=== PATIENT | female | born 1950 | race Caucasian/White ===

== ENCOUNTER → 2016-11-26 | Outpatient (CLI) | payer OTHER | LOC: CIMAGING 10:44 | PROVIDERS: ATTEND Obstetrics & Gynecology Gynecology | DX: Z12.31 Encounter for screening mammogram for malignant neoplasm of breast (principal) | CPT/HCPCS: G0202 ==

== ENCOUNTER → 2017-03-07 | Outpatient (CLI) | payer OTHER | LOC: FIMAGING 10:21 | PROVIDERS: ATTEND Physician Assistant | DX: R11.2 Nausea with vomiting, unspecified (principal); K22.4 Dyskinesia of esophagus; K22.8 Other specified diseases of esophagus; Z98.1 Arthrodesis status ==

== ENCOUNTER 2017-06-02 12:01 | Day surgery (SDC) | payer OTHER ==
[2017-06-02] MEDS ORDERED: LIDOCAINE 1% 2 ML INJ ONE (12:53)
[2017-06-02] MEDS ORDERED: LIDOCAINE 1% 2 ML INJ ID PRN (12:54)
[2017-06-02] MEDS ORDERED: LR 1,000 ML IV ONE (12:54)
--- NOTE | 2017-06-02 13:45 | PDANEPAE ---
ANE History of Present Illness here for egd/colonoscopy ANE Past Medical History - Cardiovascular History Hx Hypertension: No Hx Arrhythmias: No Hx Chest Pain: No Hx Coronary Artery / Peripheral Vascular Disease: No Hx CHF / Valvular Disease: No Hx Palpitations: No Cardiovascular History Comment: slight murmur? heart valve problems r/t menigitis,hx- mitral valve. - Pulmonary History Hx COPD: No Hx Asthma/Reactive Airway Disease: No Hx Recent Upper Respiratory Infection: No Hx Oxygen in Use at Home: No Hx Sleep Apnea: No Sleep Apnea Screening Result - Last Documented: Negative Pulmonary History Comment: denies sob to walk across the rooms. PNEUMONIA 2013 - NOW CLEARED PER CXR DONE MAR [address] KEITH - Neurologic History Hx Cerebrovascular Accident: No Hx Seizures: Yes Hx Dementia: No Neurologic History Comment: hx menigitis. migraines. hx seizure x 1 in hosp- 2003. hx of spinal fusions - Endocrine History Hx Diabetes: Yes Endocrine History Comment: hypothyroidism. addisons disease - Renal History Hx Renal Disorders: No - Liver History Hx Hepatic Disorders: No Hepatic History Comment: CHOLECYSTECTOMY - Neurological & Psychiatric Hx Hx Neurological and Psychiatric Disorders: Yes Neurological / Psychiatric History Comment: depression. anxiety - Cancer History Hx Cancer: Yes Cancer History Comment: hx basal cell ca. - Congenital Disorder History Hx Congenital Disorders: No - GI History Hx Gastrointestinal Disorders: Yes Gastrointestinal History Comment: sigmoid repairs, mult abd surgeries. hernia repair. current nausea, vomiting, diarrhea. hx of blanca and ERCP. IBS - Other Health History Other Health History: fibromyalgia - Chronic Pain History Chronic Pain: Yes (fibromyalgia, endometriosis) - Surgical History Prior Surgeries: 04/22/14 ERCP with Saul. sm bowel resection. appy. lap cholecystectomy. abd. hysterectomy. temp ileostomy- reanastomosed. abdominal surgeries- lysis of adhesions. bowel repairs. hernia repairs. LUMBAR SPINE FUSIONS ANE Review of Systems Review of systems is: negative Review of Systems: - Exercise capacity Exercise capacity: >=4 METS METS (RN): 4 METS ANE Patient History - Allergies Allergies/Adverse Reactions: cilastatin sodium [From Primaxin IM] Allergy (Verified 05/19/17 10:22) Rash diphenhydramine HCl [From Benadryl] Allergy (Verified 05/19/17 10:22) goes crazy with it- bounces off the wall droperidol [From Inapsine] Allergy (Verified 05/19/17 10:22) vomitting imipenem [From Primaxin IM] Allergy (Verified 05/19/17 10:22) Rash meperidine HCl [From Demerol] Allergy (Verified 05/19/17 10:22) vomitting meropenem [From Merrem] Allergy (Verified 05/19/17 10:22) vomitting metoclopramide HCl [From Reglan] Allergy (Verified 05/19/17 10:22) goes carla crazy with this too Metronidazole HCl [From Flagyl] Allergy (Verified 05/19/17 10:22) Rash morphine [Morphine] Allergy (Verified 05/19/17 10:22) vomitting prochlorperazine maleate [From Compazine] Allergy (Verified 05/19/17 10:22) vomitting promethazine HCl [From Phenergan] Allergy (Verified 05/19/17 10:22) goes crazy with sulfamethoxazole [From Bactrim] Allergy (Verified 05/19/17 10:22) Rash trimethoprim [From Bactrim] Allergy (Verified 05/19/17 10:22) Rash - Home Medications Home medications: home medication list seen and reviewed Home Medications: Chlordiaz/Clidiniu 5/2.5 [Librax (RX)] 01/07/12 [Last Taken 3 Days Ago ~] Diphenoxylate HCl/Atrop Sulf [Lomotil Tab (RX)] 01/07/12 [Last Taken 3 Days Ago ~05/30/17] LORazepam [Ativan 1 mg (RX)] 01/07/12 [Last Taken 1 Day Ago ~06/01/17] Herbals/Supplements -Info Only 01/25/14 [Last Taken 1 Week Ago ~05/26/17] Levothyroxine [Synthroid 50 mcg (RX)] 01/25/14 [Last Taken 06/02/17 07:00] DILAUDID 05/19/17 [Last Taken 06/02/17 07:00] Embeda 100-4 mg Capsule 05/19/17 [Last Taken 06/02/17 07:00] LYRICA 05/19/17 [Last Taken 06/02/17 07:00] Metamucil 05/19/17 [Last Taken 1 Week Ago ~05/26/17] Prilosec 05/19/17 [Last Taken 2 Days Ago ~05/31/17] predniSONE 05/19/17 [Last Taken 1 Day Ago ~06/01/17] - NPO status NPO Status: no food or drink >8 hours NPO Since - Liquids (Date): 06/01/17 NPO Since - Liquids (Time): 22:00 NPO Since - Solids (Date): 06/01/17 NPO Since - Solids (Time): 22:00 - Smoking Hx Smoking Status: Never smoked - Family Anes Hx Family Hx Anesthesia Complications: none ANE Labs/Vital Signs - Vital Signs Vital Signs: reviewed preoperatively; see RN documention for details Blood Pressure: 109/66 Heart Rate: 98 Respiratory Rate: 18 O2 Sat (%): 89 Height: 157.48 cm Weight: 49.895 kg ANE Anesthesia Plan Anesthesia Plan: GA with mask
[2017-06-02] MEDS ORDERED: MIDAZOLAM 2 MG/2 ML VIAL ONE (13:51)
[2017-06-02] MEDS ORDERED: PROPOFOL/EMULSION 500 MG/50 ML BOTTLE IV ONE (13:52)
--- NOTE | 2017-06-02 13:52 | PDGENHP ---
History & Physical Chief Complaint: nausea and vomiting History of Present Illness: 66 year old female on PPI therapy presents for evaluation of nausea and vomiting. Pertinent Past, Social, Family History: PMHx: chronic pain, migraines, fibromyalgia. pSurgx: multiple abdominal pains Relevant Physical Exam: HEENT: anicteric. CV: RRR +s1s2. Lungs: CTAB. Abd: soft, nt + bs Cardiorespiratory Assessment: ASA 3
[2017-06-02] MEDS ORDERED: HYDROmorphONE/DILAUDID 2 MG/ML INJ ONE (13:59)
[2017-06-02] MEDS ORDERED: ONDANSETRON 4 MG/2 ML VIAL IVP PRN (14:15)
[2017-06-02] MEDS ORDERED: NALOXONE HCL 0.4 MG/ML INJ IVP PRN (14:15)
[2017-06-02] MEDS ORDERED: fentaNYL 100 MCG/2 ML INJ IVP PRN (14:15)
[2017-06-02] MEDS ORDERED: HYDROmorphONE/DILAUDID 1 MG/ML INJ IVP PRN (14:15)
[2017-06-02] MEDS ORDERED: ALBUTEROL 3 ML DEYVIAL IH PRN (14:15)
[2017-06-02 15:38] VITALS: TEMP 96.8
[2017-06-02 15:54] VITALS: BP 118/80; PULSE 83; RESP 14; O2SAT 94
--- NOTE | 2017-06-02 22:29 | GPN ---
[f rep st] PROCEDURE NOTE DATE OF PROCEDURE: 06/02/2017 PROCEDURE: Colonoscopy. INDICATION: The patient is a 66-year-old female with a personal history of polyps who presents for surveillance colonoscopy. CONSENT: Risks, benefits, and alternatives of the procedure were discussed in great detail with the patient. Risks of infection, bleeding, perforation, and sedation were discussed. All questions were answered. Informed consent obtained. MEDICATIONS: Propofol. ESTIMATED BLOOD LOSS: Insignificant. DESCRIPTION OF PROCEDURE: A rectal exam was performed and no palpable mass was felt. The adult colonoscope was introduced into the rectum and advanced to rectosigmoid area where a surgical anastomosis was noted. A blind loop was noted. The scope was then passed into the right lumen and advanced to what appeared to be an ilealcolonic anastomosis close to the cecal area. The quality of the prep was just fair, and a large amount of fluid was flushed and suctioned with good visualization of the mucosa. No polyps were seen. IMPRESSION: 1. Altered anatomy. 2. No polyps. RECOMMENDATIONS: 1. Colonoscopy in 5 years. 2. Continue previous medications. /[id number]/MODL MTDD
--- NOTE | 2017-06-02 22:41 | GPN ---
[f rep st] PROCEDURE NOTE DATE OF PROCEDURE: 06/02/2017 PROCEDURE: Esophagogastroduodenoscopy with biopsy. INDICATION: The patient is a 66-year-old female who presents with complaints of nausea and vomiting. CONSENT: Risks, benefits, and alternatives of the procedure were discussed in great detail with the patient. Risks of infection, bleeding, perforation, and sedation were discussed. All questions answered and informed consent was obtained. MEDICATIONS: Propofol. Please see Anesthesia record for details. ESTIMATED BLOOD LOSS: Insignificant. ESOPHAGOGASTRODUODENOSCOPY EXAMINATION: The Olympus upper endoscope was introduced into the mouth and advanced to the esophagus. In the upper and mid- esophagus, a large exudate versus food debris versus Becki was seen. Biopsies were taken. The mid and distal esophagus were normal in appearance. The stomach was entered and closely examined, including retroflexed views of the angularis, cardia, and fundus. A hiatal hernia was noted. The mucosa in the antrum and the body of the stomach was erythematous in a patchy distribution and biopsies were taken. The duodenal bulb and second portion of the duodenum were normal in appearance. IMPRESSION/RECOMMENDATIONS 1. Hiatal hernia. 2. Gastritis, status post biopsies. 3. Biopsies taken of the upper esophagus to rule out Becki esophagitis. 4. Increase proton pump inhibitor therapy. 5. Anti-reflux lifestyle. 6. Proceed with colonoscopy. 7. Follow up with biopsy results. /[id number]/MODL MTDD
== END 2017-06-02 16:19 | disposition home or self-care (01) ==
LOC: FSGY 12:01
PROVIDERS: ATTEND Internal Medicine Gastroenterology
PROC: 0DB68ZX Excision of Stomach, Via Natural or Artificial Opening Endoscopic, Diagnostic (ICD-10-PCS; principal; 2017-06-02 14:00)
PROC: 0DB58ZX Excision of Esophagus, Via Natural or Artificial Opening Endoscopic, Diagnostic (ICD-10-PCS; principal; 2017-06-02 14:00)
DX: K20.9 Esophagitis, unspecified (principal); K31.9 Disease of stomach and duodenum, unspecified; K44.9 Diaphragmatic hernia without obstruction or gangrene; G89.29 Other chronic pain; G43.009 Migraine without aura, not intractable, without status migrainosus; M79.7 Fibromyalgia; Z98.0 Intestinal bypass and anastomosis status; Z86.010 Personal history of colon polyps
CPT/HCPCS: J1170; J2250; J2704

== ENCOUNTER → 2017-08-21 | Outpatient (CLI) | payer OTHER | LOC: FIMAGING 09:28 | PROVIDERS: ATTEND Physician Assistant | DX: K31.89 Other diseases of stomach and duodenum (principal) | CPT/HCPCS: 78264; A9541 ==

== ENCOUNTER → 2018-01-13 | Outpatient (CLI) | payer OTHER | LOC: FIMAGING 14:54 | PROVIDERS: ATTEND Internal Medicine | DX: R91.1 Solitary pulmonary nodule (principal) ==

== ENCOUNTER → 2018-03-02 | Outpatient (CLI) | payer OTHER ==
[~2018-03-02] MED LIST: GADOBUTROL 10 ML VIAL IVP ONE
== END ==
LOC: CIMAGING 11:32
PROVIDERS: ATTEND Internal Medicine
DX: M25.551 Pain in right hip (principal); R20.2 Paresthesia of skin; R29.898 Other symptoms and signs involving the musculoskeletal system; Z98.1 Arthrodesis status
CPT/HCPCS: 72158; 73502; A9585; 82565-PO